=== PATIENT | male | born 1995 | race African-American/Black ===

== ENCOUNTER 2022-03-17 22:18 | Emergency (ER) | payer MEDICAID ==
[~2022-03-17] VITALS: Ht 180.3 cm; Wt 79.1 kg
[2022-03-17 22:34] VITALS: BP 157/85
[2022-03-17 23:20] LABS: Basophils # (auto) 0 10 ^3/uL (0-0.2); Basophils % (auto) 0.4 % (0.0-2.0); Eosinophils # (auto) 0.1 10 ^3/uL (0-0.8); Eosinophils % (auto) 0.9 % (0.0-7.0); Hematocrit 43.2 % (41.0-53.0); Lymphocytes # (auto) 1.9 10 ^3/uL (0.4-5.4); Lymphocytes % (auto) 25.8 % (10.0-50.0); Mean Corpuscular Hemoglobin 27.5 pg (28.0-32.0); Mean Corpuscular Hgb Conc. 32.4 g/dL (32.0-36.0); Monocytes # (auto) 0.5 10 ^3/uL (0-1.3); Monocytes % (auto) 6.9 % (0.0-12.0); Neutrophils # (auto) 4.8 10 ^3/uL (1.6-8.6); Nucleated Red Blood Cells % 0.1 %; Red Blood Cells 5.08 10^6/uL (4.5-5.90); Red Cell Distribution Width 13.4 % (11.8-14.3); White Blood Cell 7.3 10^3/uL (4.4-10.8)
[2022-03-17 23:33] LABS: Albumin 4.5 g/dL (3.4-5.0); BUN/Creatinine Ratio 14.7
[2022-03-17 23:36] LABS: Bilirubin, Total 0.4 mg/dL (0.2-1.0); Total Protein 7.9 g/dL (6.4-8.2)
[2022-03-18] MEDS ORDERED: AML5T PO (01:57)
== END 2022-03-18 03:56 | disposition home or self-care (01) ==
LOC: ER 22:18
DX: R07.89 Other chest pain (principal); I10 Essential (primary) hypertension
CPT/HCPCS: 36415; 71045; 80053; 82550; 83880; 84484; 85025; 93005

== ENCOUNTER 2024-03-09 09:32 | Emergency (ER) | payer MEDICAID ==
[~2024-03-09] VITALS: Ht 182.9 cm; Wt 81.9 kg
[~2024-03-09 09:32] MED LIST: AML5T PO
[2024-03-09 10:25] VITALS: BP 144/91; PULSE 83; RESP 18; TEMP 97.9; O2SAT 100
== END 2024-03-09 11:17 | disposition home or self-care (01) ==
LOC: ER 09:32
DX: S61.512A Laceration without foreign body of left wrist, initial encounter (principal); I10 Essential (primary) hypertension; W26.8XXA Contact with other sharp object(s), not elsewhere classified, initial encounter; Y93.89 Activity, other specified; Y92.89 Other specified places as the place of occurrence of the external cause; Y99.8 Other external cause status
CPT/HCPCS: 12002